=== PATIENT | female | born 1995 | race Caucasian/White ===

== ENCOUNTER 2018-05-20 18:56 | Emergency (ER) | payer OTHER ==
[~2018-05-20] VITALS: Ht 172.7 cm; Wt 72.2 kg
[2018-05-20 19:10] VITALS: BP 145/85
[2018-05-20] MEDS ORDERED: ACETAMINOPHEN 500 MG TABLET ONE (19:26)
[2018-05-20] MEDS ORDERED: IBUPROFEN 200 MG TABLET ONE (19:26)
[2018-05-20] MEDS ORDERED: ACETAMINOPHEN 500 MG TABLET PO ONE (19:30)
[2018-05-20] MEDS ORDERED: IBUPROFEN 200 MG TABLET PO ONE (19:30)
== END 2018-05-20 19:39 | disposition home or self-care (01) ==
LOC: ED 19:20
DX: B08.4 Enteroviral vesicular stomatitis with exanthem (principal); J02.9 Acute pharyngitis, unspecified
CPT/HCPCS: 99283